=== PATIENT | male | born 1970 ===

== ENCOUNTER 2021-03-17 12:18 | Outpatient (CLI) | payer SELFPAY ==
--- NOTE | 2021-03-17 | DI.RAD_ITS ---
Exam(s) CLINICAL HISTORY: . TECHNIQUE: 2D digital imaging was performed. COMPARISON: No exams were available for comparison FINDINGS: BONES: No acute fracture is present. No bony destructive lesion is seen. JOINTS: No dislocation present. SOFT TISSUE: Normal. IMPRESSION: No acute fracture or dislocation. Findings were communicated with the ordering physician on 03/17/2021. DATA REPOSITORY: RADIATION DOSE DELIVERED:
== END 2021-03-17 12:38 ==
PROVIDERS: Visit Provider Physician Assistant Medical
DX: M25.512 Pain in left shoulder (principal)
CPT/HCPCS: 73030